=== PATIENT | male | born 1950 | race Asian ===

== ENCOUNTER → 2020-04-05 | Outpatient (CLI) | payer OTHER ==
--- NOTE | 2020-04-05 11:34 | RAD ---
AP, lateral, and oblique views of the right hand were performed. History: Right hand pain Comparison: none. No fracture or dislocation is seen. There is mild joint space narrowing and diffuse osteopenia. Electronically signed by: Romeo Fuentes MD (04/05/2020 11:31 AM) [id number]
== END | disposition home or self-care (01) ==
LOC: PMG 10:53
PROVIDERS: ATTEND Physician Assistant Medical
DX: M85.841 Other specified disorders of bone density and structure, right hand (principal)
CPT/HCPCS: 73130

== ENCOUNTER → 2020-12-20 | Outpatient (CLI) | payer OTHER ==
--- NOTE | 2020-12-20 16:25 | RAD ---
EXAM: XR CHEST 2V INDICATION: Reason: COUGH / Spl. Instructions: / History: . TECHNIQUE: PA and lateral views COMPARISON: None FINDINGS: The heart size is normal. The great vessels appear unremarkable. There is no hilar or mediastinal mass. Lungs are hypoventilatory with asymmetric elevation of the right diaphragm and interposition of large bowel underneath the right diaphragm. There is an ill-defined opacity in the posterior basal right l ower lobe, favored atelectasis. There is no pleural effusion or pneumothorax. There are no significant osseous abnormalities. IMPRESSION: Ill-defined opacity in the posterior basal right lower lobe in the setting of right diaphragmatic cy vation could be atelectasis but superimposed pneumonic infiltrate is not excluded. Correlate clinical ly and consider follow-up. Electronically signed by: Tariq Sosa MD (12/20/2020 4:23 PM) [id number]
== END ==
LOC: PMG 09:54
PROVIDERS: ATTEND Physician Assistant Medical
DX: R91.8 Other nonspecific abnormal finding of lung field (principal); R07.9 Chest pain, unspecified
CPT/HCPCS: 71046